=== PATIENT | female | born 1955 | race African-American/Black ===

== ENCOUNTER 2020-08-31 16:52 | Emergency (ER) | payer MEDICARE, OTHER ==
[~2020-08-31] VITALS: Ht 160 cm; Wt 42.8 kg
--- NOTE | 2020-08-31 17:32 | NUR ---
Note undone in EDM - 08/31/20 at 1750 by MARILY BIBA FOR CC OF DIZZYNESS, LIGHTHEAD, AND LETHARGIC. PTS DAUGHTER NOW AT ER STATING PT WAS TALKING WITH FAMILY AND ALL OF [place]UD[place] NEEDED TO SIT DOWN STATING "I DONT FEEL WELL". PT THEN LAID BACK IN VEHICLE AND THEN "JERKED AND STARTED DRY HEAVING" PER DAUGHTER. PT NODS HEAD YES WHEN ASKED IF SHE REMEMBERS EVENT. PT FALLS ASLEEP MID CONVERSATION BUT AWAKENS EASILY AND IS ABLE TO TELL SOME PARTS OF HER PMH. PT DOES NOT KNOW WHERE SHE IS, WHAT CITY SHE IS IN, OR WHAT MONTH IT IS. PT HAS PMH OF CVA WITH RIGHT SIDED WEAKNESS AND MEMORY LOSS.
--- NOTE | 2020-08-31 17:32 | NUR ---
BIBA FOR CC OF DIZZYNESS, LIGHTHEAD, AND LETHARGIC. PTS DAUGHTER NOW AT ER STATING PT WAS TALKING WITH FAMILY AND ALL OF SUDDEN NEEDED TO SIT DOWN STATING "I DONT FEEL WELL". PT THEN LAID BACK IN VEHICLE AND THEN "JERKED AND STARTED DRY HEAVING" PER DAUGHTER. PT NODS HEAD YES WHEN ASKED IF SHE REMEMBERS EVENT. PT FALLS ASLEEP MID CONVERSATION BUT AWAKENS EASILY AND IS ABLE TO TELL SOME PARTS OF HER PMH. PT DOES NOT KNOW WHERE SHE IS, WHAT CITY SHE IS IN, OR WHAT MONTH IT IS. PT HAS PMH OF CVA WITH RIGHT SIDED WEAKNESS AND MEMORY LOSS. ALSO HX OF "HER BODY DOESN'T HOLD POTASSIUM OR VITAMIN B AND HAS HAD SIMILAR EPISODES, LAST ONE BEING 1 MONTH AGO". PT T[place]ES [place] AND [place].
[2020-08-31 18:19] LABS: BASOPHILS % (AUTO) 1 % (0-1); EOSINOPHILS % (AUTO) 1 % (1-7); LYMPHOCYTES % (AUTO) 20 % (22-44); MEAN CORPUSCULAR HEMOGLOBIN 27.3 pg (27.0-34.8); MEAN CORPUSCULAR HGB CONC 32.3 g/dL (32.4-35.8); MEAN PLATELET VOLUME 9.7 fL (7.4-10.4); MONOCYTES % (AUTO) 7 % (2-9); NEUTROPHILS % (AUTO) 71 % (42-75); PLATELET COUNT 200 x10^3/uL (130-400); RED BLOOD COUNT 3.86 x10^6/uL (3.82-5.3)
--- NOTE | 2020-08-31 18:23 | NUR ---
ua collected and sent to lab
[2020-08-31 18:27] LABS: ALANINE AMINOTRANSFERASE 19 U/L (12-78); ALBUMIN 3.6 g/dL (3.4-5.0); ANION GAP 6 mmol/L (5-15); CALCIUM 8.9 mg/dL (8.5-10.1); CHLORIDE 107 mmol/L (98-107); CREATININE 1.07 mg/dL (0.55-1.02)
[2020-08-31 18:29] LABS: ALKALINE PHOSPHATASE 65 U/L (45-117); BILIRUBIN,TOTAL 0.2 mg/dL (0.2-1.0); TOTAL PROTEIN 7.3 g/dL (6.4-8.2)
[2020-08-31 18:43] LABS: MICROSCOPIC INDICATED
[2020-08-31] MEDS ORDERED: POTASSIUM CHLORIDE 20 MEQ TAB.ER.PRT PO ONE (19:00)
[2020-08-31] MEDS ORDERED: POTASSIUM CHLORIDE 40 MEQ in SODIUM CHLORIDE 0.9% 500 ML IV ONE (19:00)
[2020-08-31] MEDS ORDERED: POTASSIUM CHLORIDE 20 MEQ TAB.ER.PRT ONE (19:19)
[2020-08-31 19:27] LABS: INTERNATIONAL NORMALIZED RATIO 2.73 (0.93-1.1); PROTHROMBIN TIME 28.6 Seconds (9.6-11.5)
--- NOTE | 2020-08-31 19:33 | NUR ---
PT MORE ALERT, SPEAKING MORE CLEARLY AND LOUDER. PT AND DAUGHTER HAVE DISCUSSED WITH MD AT BEDSIDE ABOUT DC HOME INSTEAD OF ADMIT. PT AND DAUGHTER UNDERSTAND RETURNING IF SYMPTOMS WORSEN OR RETURN.
[2020-08-31 20:17] VITALS: BP 128/67
== END 2020-08-31 20:26 | disposition home or self-care (01) ==
LOC: EDBD 16:52 → ED 19:54
DX: R53.1 Weakness (principal); R00.1 Bradycardia, unspecified; E87.6 Hypokalemia; Z86.73 Personal history of transient ischemic attack (TIA), and cerebral infarction without residual deficits
CPT/HCPCS: 36415; 71045; 80053; 81001; 83735; 85025; 85610; 85730; 93005; 99285